=== PATIENT | female | born 1980 | race Caucasian/White ===

== ENCOUNTER 2019-04-30 16:50 | Emergency (ER) | payer OTHER ==
[2019-04-30] MEDS ORDERED: NS 0.9% 1000 ML** 1,000 ML IV ONE (18:51)
[2019-04-30] MEDS ORDERED: PROCHLORPERAZINE INJ 5 MG/ML 2 ML VIAL IV ONE (18:51)
[2019-04-30] MEDS ORDERED: Ketorolac INJ* 30 MG/ML 1 ML VIAL IV PUSH ONE (18:52)
[2019-04-30] MEDS ORDERED: diPHENhydraMINE IV* 50 MG/ML 1 ml VIAL (BENADRYL) IV ONE (18:52)
[2019-04-30 19:19] LABS: ABS Lymphocytes 0.9 10^3/ul (1.0-4.8); ABS Monocytes 0.3 10^3/ul (0-0.8); ABS Neutrophils 5.4 10^3/ul (1.5-7.7); Eosinophil % 0.1 %; Hematocrit 41 % (35-47); Hemoglobin 14.1 g/dL (12.0-16.0); Lymphocyte % 13.8 %; Mean Corpuscular HGB Conc 34 g/dL (31-36); Mean Corpuscular Hemoglobin 32 pg (27-31); Mean Corpuscular Volume 94 fL (80-97); Mean Platelet Volume 7.7 fL (7.4-10.4); Nucleated Red Blood Cells % 0.1; Platelet Count 219 10^3/uL (150-450); Red Blood Count 4.41 10^6 /uL (3.70-4.87); Red Cell Distribution Width 13 % (10-15); White Blood Count 6.6 10^3/uL (3.5-10.8)
--- NOTE | 2019-04-30 19:27 | ED ---
GI/ HPI - HPI Summary HPI Summary: 38-year-old female presents with headache and nausea and vomiting today. She denies anyone else being sick or eating anything different. She has history of migraines but has only vomited once with previous migraines. She is currently have a migraine but this is not the worst headache of her life. She denies any fevers or neck stiffness. No sinus congestion. No recent illness. She does have a cough. Denies any chest pain or shortness breath. She denies any bowel pain. No diarrhea. Hasn't tried any for symptoms. - History of Current Complaint Chief Complaint: EDNauseaVomitDiarrh Time Seen by Provider: 04/30/19 18:45 Stated Complaint: VOMITING GREEN MUCUS PER PT Hx Last Menstrual Period: 09/14/16 Pain Intensity: 5 - Allergy/Home Medications Allergies/Adverse Reactions: Allergies Allergy/AdvReac Type Severity Reaction Status Date / Time No Known Allergies Allergy Verified 04/30/19 16:53 Home Medications: Home Medications Levonorgestrel-Ethin Estradiol [Levonest] 1 tab PO DAILY 04/30/19 [History Confirmed 04/30/19] Levonorgestrel-Ethin Estradiol [Levonorgestrel/Ethinyl Es] 1 tab PO DAILY [History Confirmed 04/30/19] PMH/Surg Hx/FS Hx/Imm Hx Endocrine/Hematology History: Denies: Hx Diabetes, Hx Thyroid Disease Cardiovascular History: Denies: Hx Hypertension Respiratory History: Denies: Hx Asthma, Hx Chronic Obstructive Pulmonary Disease (COPD) GI History: Denies: Hx Ulcer Musculoskeletal History: Denies: Hx Rheumatoid Arthritis, Hx Osteoporosis - Surgical History Surgery Procedure, Year, and Place: oral surgery Infectious Disease History: No Infectious Disease History: Denies: Hx Clostridium Difficile, Hx Hepatitis, Hx Human Immunodeficiency Virus (HIV), Hx of Known/Suspected MRSA, Hx Shingles, Hx Tuberculosis, Hx Known/ Suspected VRE, Hx Known/Suspected VRSA, History Other Infectious Disease, Traveled Outside the [place] in Last 30 Days - Family History Known Family History: Positive: Hypertension Negative: Cardiac Disease, Diabetes - Social History Alcohol Use: Occasionally Substance Use Type: Reports: None Smoking Status (MU): Never Smoked Tobacco Have You Smoked in the Last Year: No Review of Systems Negative: Fever Negative: Chest Pain Negative: Shortness Of Breath Positive: Vomiting, Nausea. Negative: Abdominal Pain, Diarrhea Positive: Headache All Other Systems Reviewed And Are Negative: Yes Physical Exam Triage Information Reviewed: Yes Vital Signs On Initial Exam: Initial Vitals Temp Pulse Resp BP Pulse Ox 97.8 F 90 18 128/90 99 04/30/19 16:53 04/30/19 16:53 04/30/19 16:53 04/30/19 16:53 04/30/19 16:53 Vital Signs Reviewed: Yes Appearance: Positive: Well-Appearing Skin: Positive: Warm, Dry Head/Face: Positive: Normal Head/Face Inspection Eyes: Positive: Normal, EOMI, GISELE, Conjunctiva Clear ENT: Positive: Normal ENT inspection, Pharynx normal, TMs normal Respiratory/Lung Sounds: Positive: Clear to Auscultation, Breath Sounds Present Cardiovascular: Positive: Normal, RRR Abdomen Description: Positive: Nontender, Soft Bowel Sounds: Positive: Present Musculoskeletal: Positive: Normal Neurological: Positive: Sensory/Motor Intact, Alert, Oriented to Person Place, Time, CN Intact II-III Psychiatric: Positive: Normal Diagnostics - Vital Signs Vital Signs Temp Pulse Resp BP Pulse Ox 04/30/19 16:53 97.8 F 90 18 128/90 99 - Laboratory Lab Results: Lab Results 04/30/19 Range/Units 19:13 WBC 6.6 (3.5-10.8) 10^3/uL RBC 4.41 (3.70-4.87) 10^6 /uL Hgb 14.1 (12.0-16.0) g/dL Hct 41 (35-47) % MCV 94 (80-97) fL MCH 32 H (27-31) pg MCHC 34 (31-36) g/dL RDW 13 (10-15) % Plt Count 219 (150-450) 10^3/uL MPV 7.7 (7.4-10.4) fL Neut % (Auto) 81.3 % Lymph % (Auto) 13.8 % [place] % (Auto) 4.4 % Eos % (Auto) 0.1 % Baso % (Auto) 0.4 % Absolute Neuts (auto) 5.4 (1.5-7.7) 10^3/ul Absolute Lymphs (auto) 0.9 L (1.0-4.8) 10^3/ul Absolute Monos (auto) 0.3 (0-0.8) 10^3/ul Absolute Eos (auto) 0.0 (0-0.6) 10^3/ul Absolute Basos (auto) 0.0 (0-0.2) 10^3/ul Absolute Nucleated RBC 0.0 10^3/ul Nucleated RBC % 0.1 Result Diagrams: 04/30/19 19:13 04/30/19 19:13 Lab Statement: Any lab studies that have been ordered have been reviewed, and results considered in the medical decision making process. Re-Evaluation - Re-Evaluation First Eval Re-Evaluation Time: 21:19 Change: Improved Comment: headache gone, nausea improved GIGU Course/Dx - Course Course Of Treatment: 38-year-old female presents with headache and nausea and vomiting today. She denies anyone else being sick or eating anything different. She has history of migraines but has only vomited once with previous migraines. She is currently have a migraine but this is not the worst headache of her life. She denies any fevers or neck stiffness. No sinus congestion. No recent illness. She does have a cough. Denies any chest pain or shortness breath. She denies any bowel pain. No diarrhea. Hasn't tried any for symptoms. On exam has normal neuro exam. Abdomen soft nontender. lungs clear to auscultation. White blood count normal. crp normal. Gave migraine cocktail and feeling better. will discharge with zofran. patient understand and agrees with plan. - Diagnoses Differential Diagnoses - Female: Gastroenteritis (Viral), Gastroenteritis ( Bacterial), Other - migraine Provider Diagnoses: Vomiting, Headache Discharge - Sign-Out/Discharge Documenting (check all that apply): Patient Departure Patient Received Moderate/Deep Sedation with Procedure: No - Discharge Plan Condition: Good Disposition: HOME Prescriptions: Ondansetron ODT TAB* [Zofran 4 MG Odt TAB*] 4 mg PO Q6H PRN #16 tab.odt PRN Reason: Nausea Patient Education Materials: Acute Headache (ED) Referrals: Zaria Cramer MD [Primary Care Provider] - Additional Instructions: Take Tylenol for pain every 6 hours take zofran every 6 hours for nausea as needed Take Tylenol or ibuprofen for pain every 6 hours Drink small amounts of fluid as tolerated When able to eat follow BRAT diet: Bananas, rice, applesauce, toast Follow up with primary within 5 days Return to ED if develop any new or worsening symptoms - Billing Disposition and Condition Condition: GOOD Disposition: Home
[2019-04-30 19:44] LABS: HCG Pregnancy < 0.60 mIU/mL
[2019-04-30 19:45] LABS: ALT 11 U/L (7-52); AST 17 U/L (13-39); Albumin 4.2 g/dL (3.2-5.2); Albumin/Globulin Ratio 1.4 (1-3); Alkaline Phosphatase 32 U/L (34-104); Anion Gap 10 mmol/L (2-11); Blood Urea Nitrogen 9 mg/dL (6-24); C Reactive Protein < 1.00 mg/L (<8.01); CO2 Carbon Dioxide 23 mmol/L (22-32); Calcium 9.5 mg/dL (8.6-10.3); Chloride 104 mmol/L (101-111); EGFR African American 115.8 (>60); EGFR Non-African American 95.7 (>60); Globulin 3.1 g/dL (2-4); Glucose 84 mg/dL (70-100); Magnesium 1.9 mg/dL (1.9-2.7); Sodium 137 mmol/L (135-145); Total Protein 7.3 g/dL (6.4-8.9)
[2019-04-30] MEDS ORDERED: O ndansetron ODT 4MG 5TAB PRPK 4 MG PAK PO ONE (20:59)
[2019-04-30 21:34] VITALS: BP 116/72
== END 2019-04-30 21:33 | disposition home or self-care (01) ==
LOC: ED 16:50
DX: R51 Headache (principal); R11.10 Vomiting, unspecified
CPT/HCPCS: 36415; 80053; 83690; 83735; 84702; 85025; 86140; 96361; 96374; 96375; 99284; A9270-GY; J0780; J1200; J1885